=== PATIENT | female | born 1990 | race Caucasian/White ===

== ENCOUNTER 2016-10-19 05:58 | Inpatient (IN) | payer BC ==
[~2016-10-19] VITALS: Ht 172.7 cm; Wt 84.4 kg
--- NOTE | ~2016-10-19 | FD ---
ADMIT: 10/19/2016 RM/LOC: 201 [facility] MR#: [id number] [address] MIRANDA EMERY [address] [address] Final Diagnosis SEX: F AGE: 26 : 1990 ADMISSION DATE: 10/19/2016 DISCHARGE DATE: 10/20/2016 FINAL DIAGNOSIS: Term at 39-1/7 weeks' estimated gestational age. PROCEDURE: Vaginal delivery. Timoteo Barbour MD/ john JOB #: [id number] CC: Rosi Herrera MD, Attending Physician Rosi Herrera MD, Family Physician
--- NOTE | 2016-10-21 09:39 | OR ---
ADMIT: 10/19/2016 RM/LOC: 201 [facility] MR#: [id number] [place] MIRANDA Fabian [address] [place] [id number] Operative/Delivery Room Report SEX: F AGE: 26 : 1990 SURGERY DATE: 10/19/2016 SURGEON: Timoteo Barbour MD PRINCIPAL DIAGNOSES: 1. Term intrauterine . 2. Active labor. POSTOPERATIVE DIAGNOSES: 1. Term intrauterine . 2. Active labor. PROCEDURE: Spontaneous vaginal delivery. INDICATION: The patient is a 26-year-old white female, 2 para 1, who presented at 39 and 1 weeks' estimated gestational age in active labor, progressed through labor in a satisfactory fashion to complete. ANESTHESIA: Epidural. ESTIMATED BLOOD LOSS: 250 mL. COMPLICATIONS: None. FINDINGS: Viable female , 7 pounds 9 ounces with scores of 8 at 1 and 9 at 5 minutes, delivered in left occiput anterior presentation. DESCRIPTION OF PROCEDURE: When the patient was noted to be complete and pushing, she was prepped and draped in the usual fashion in dorsal lithotomy position. 's head was allowed to deliver over an intact perineum. After restitution of the head, the mouth and nose were cleared. Neck was examined for nuchal cord and none was noted. The anterior followed by the posterior shoulders were delivered, followed by expulsion of the remainder of ADMIT: 10/19/2016 RM/LOC: 201 [facility] MR#: [id number] [id number] MIRANDA EMERY [address] [place] [address] Operative/Delivery Room Report SEX: F AGE: 26 : 1990 the . Mouth and nose were cleared, and the infant was placed on the maternal stomach in the care of nursing staff. After approximately 1 minute, the umbilical cord was clamped and cut. The placenta was then delivered intact with normal appearance. The uterine cervix was visualized and noted to be without lacerations or tears. Attention was then turned to the perineum, where she was noted to have a second-degree midline perineal laceration. This was instilled with approximately 10 mL 1% lidocaine and reapproximated in standard fashion utilizing a single length of 2-0 Vicryl using a running locked stitch to close the vaginal mucosa, a running stitch to close the deep perineal body, and a subcuticular stitch to close the skin. The patient tolerated the procedure well and was taken to the recovery room in stable condition. All sponge, instrument, and needle counts were correct. Timoteo Barbour MD/ teri JOB #: [id number] CC: Rosi Herrera, Attending Physician Rosi Herrera, Family Physician
[2016-10-21] MEDS ORDERED: PRENATAL VIT1 TAB PO (17:05)
[2016-10-21] MEDS ORDERED: MOTRIN-DPS800 MG PO (17:05)
[2016-10-21] MEDS ORDERED: NIPPLECREAM TP (17:06)
[2016-10-21] MEDS ORDERED: TYLENOL #3 DPS1 TAB PO (17:06)
--- NOTE | 2016-12-31 08:40 | HP ---
ADMIT: 10/19/2016 RM/LOC: 201 [facility] MR#: [id number] [address] [phone] MIRANDA EMERY [address] [place] [id number] Pre-OP History and Physical SEX: F AGE: 26 : 1990 DATE OF SERVICE: PRINCIPAL DIAGNOSIS: Uterine contractions. HISTORY OF PRESENT ILLNESS: The patient is a 26-year-old white female, 2, para 1, who presented at 39-1/7 weeks' estimated gestational age with complaint of uterine contractions. The patient had an uncomplicated . PAST MEDICAL HISTORY: She denied any significant previous medical history. SOCIAL HISTORY: She does not smoke, drink, or use drugs. ALLERGIES: SHE HAS NO KNOWN MEDICAL ALLERGIES. FAMILY HISTORY: Significant for diabetes and lupus. PHYSICAL EXAMINATION: GENERAL: The patient is a well-developed, well- nourished white female, alert and oriented, no apparent distress with normal stream of thought and content of speech. HEART: Regular rate and rhythm without murmurs, rubs, or gallops. LUNGS: Clear to auscultation bilaterally. ABDOMEN: Soft with positive bowel sounds. Gravid. On presentation, the patient was noted to be ari every 5-6 minutes. heart tones in the 130s with accelerations present and cervix was 4 cm dilated, 90% effaced, and -2 station. ASSESSMENT: Term intrauterine in active labor. We will anticipate a spontaneous vaginal delivery. Timoteo Barbour MD/ darelll JOB #: [id number] CC: Timoteo Barbour MD, Attending Physician Rosi Herrera MD, Family Physician
== END 2016-10-20 20:49 | disposition home or self-care (01) | DRG 775 ==
LOC: BC 05:58 → 2LDRP 05:58 → BC 10-25 08:00
PROVIDERS: ADMIT Obstetrics & Gynecology
PROC: 0KQM0ZZ Repair Perineum Muscle, Open Approach (ICD-10-PCS; principal; 2016-10-19)
PROC: 10E0XZZ Delivery of Products of Conception, External Approach (ICD-10-PCS; principal; 2016-10-19)
DX: O70.1 Second degree perineal laceration during delivery (principal); Z37.0 Single live birth; Z3A.39 39 weeks gestation of pregnancy